=== PATIENT | male | born 1955 | race Caucasian/White ===

== ENCOUNTER → 2019-11-14 | Outpatient (CLI) | payer MEDICARE | LOC: LAB.O 09:51 | PROVIDERS: ATTEND Family Medicine | DX: I10 Essential (primary) hypertension (principal); R53.83 Other fatigue; Z12.5 Encounter for screening for malignant neoplasm of prostate | CPT/HCPCS: 36415; 80053; 81001; 84443; 85025; G0103 ==

== ENCOUNTER → 2019-11-19 | Outpatient (CLI) | payer MEDICARE, MEDICAID ==
--- NOTE | 2019-11-19 16:15 | CT ---
EXAM DESCRIPTION: Abdomen/Pelvis w/wo Contrast CLINICAL HISTORY: 64 years Male, BLOOD IN URINE HEMATURIA COMPARISON: None. TECHNIQUE: CT of the abdomen and pelvis acquired without and with IV contrast material. Coronal and sagittal reformations provided. This exam was performed according to our departmental dose-optimization program, which includes automated exposure control, adjustment of the mA and/or kV according to patient size and/or use of iterative reconstruction technique. FINDINGS: Lung bases: Clear. Solid Organs: Unremarkable liver, spleen, pancreas, adrenal glands. Contracted gallbladder. No biliary ductal dilatation. Bilateral renal cysts measuring up to 12 mm in the right. No hydronephroureter. No renal or ureteral stones. GI tract: Stomach moderately distended with gastric content. No small bowel obstruction. Scattered sigmoid diverticula without pericolonic inflammation or edema. Mild colonic stool. Normal appendix. Vascular: Mild atherosclerosis. Musculoskeletal and soft tissues: No acute fracture or aggressive appearing osseous lesion. Small fat-containing periumbilical hernia. Urinary bladder: Normal. Prostate: Mildly enlarged up to 4.8 cm in maximal transverse dimension. Other: None. IMPRESSION: 1. No renal or ureteral stone or obstructive uropathy. 2. Bilateral renal cysts. 3. Mildly enlarged prostate. 4. Small fat-containing periumbilical hernia. Electronically signed by: Alfredito Mendoza MD 11/19/2019 4:11 PM V BELT INSPECTOR
== END ==
LOC: CT 14:37
PROVIDERS: ATTEND Family Medicine
DX: N40.0 Benign prostatic hyperplasia without lower urinary tract symptoms (principal); K42.9 Umbilical hernia without obstruction or gangrene; N28.1 Cyst of kidney, acquired

== ENCOUNTER → 2019-11-30 | Outpatient (CLI) | payer MEDICARE, MEDICAID ==
--- NOTE | 2019-12-03 11:16 | CT ---
EXAM DESCRIPTION: Chest w/o Contrast : Computed Tomography. CLINICAL HISTORY: 64 years Male TOBACCO USE COMPARISON: CT scan abdomen and pelvis November 2019. TECHNIQUE: Spiral-axial scans at 5 x 5 mm intervals through the lungs and thorax without IV contrast. 2.5 x 5 mm lung algorithm axial reconstructions. Coronal and sagittal 2.0 Mm reconstructions. Total Exam DLP: 877.2 mGy-cm. This exam was performed according to our departmental dose-optimization program which includes automated exposure control, adjustment of the mA and/or kV according to patient size and/or use of iterative reconstruction technique; to reduce radiation dose to as low as reasonably achievable (ALARA). Nodule measurements under 10 mm are given as mean value of 3 axes diameters. FINDINGS: Lungs and large airways: Focal thickening 4 mm in the inferior right major fissure. Bilateral pleural-parenchymal scarring in the inferior lingula and right middle lobe also the upper aspect of the right upper lobe. No abnormal nodules and no masses. No focal infiltrates. Pleural spaces: Bilateral multifocal thickening upper lobes. Minimal bibasilar thickening. No effusion or pneumothorax. Mediastinum and Lavinia: Evaluation limited due to lack of IV contrast no enlarged lymph nodes or dominant soft tissue masses. Great vessels and Heart: Evaluation limited due to lack of IV contrast. Negative. Soft tissues of neck base, axillae, and chest wall: Evaluation limited due to lack of IV contrast. Bilateral small axillary nodes, otherwise unremarkable. Upper abdomen: Gallbladder partially visualized. Normal density and size of the adrenal glands and spleen. Osseous structures: Minimal arthrosis. Minimal thoracic spine spondylosis. No destructive lesions. IMPRESSION: 1. Sporadic bilateral pleural-parenchymal scarring. Bilateral pleural thickening. No abnormal nodules or masses. 2. No dominant soft tissue masses or enlarged lymph nodes in the mediastinum or chest wall. Sensitivity is decreased without IV contrast. 3. No follow-up chest CT scan is recommended. Electronically signed by: Trav Puente MD 12/03/2019 11:15 AM LABOR RELATIONS SPECIALIST
== END ==
LOC: CT 13:00
PROVIDERS: ATTEND Family Medicine
DX: Z72.0 Tobacco use (principal); R91.8 Other nonspecific abnormal finding of lung field

== ENCOUNTER → 2019-12-20 | Outpatient (CLI) | payer MEDICARE, MEDICAID | LOC: YCFC.O 11:02 | PROVIDERS: ATTEND Family Medicine | DX: R53.83 Other fatigue (principal); R73.9 Hyperglycemia, unspecified; F19.21 Other psychoactive substance dependence, in remission; Z86.19 Personal history of other infectious and parasitic diseases ==

== ENCOUNTER → 2020-09-10 | Outpatient (CLI) | payer MEDICARE, MEDICAID | LOC: YCFC.O 12:36 | PROVIDERS: ATTEND Family Medicine | DX: Z03.818 Encounter for observation for suspected exposure to other biological agents ruled out (principal) ==

== ENCOUNTER → 2020-11-03 | Outpatient (CLI) | payer MEDICARE, MEDICAID | LOC: YCFC.O 12:42 | PROVIDERS: ATTEND Nurse Practitioner Family | DX: Z20.828 Contact with and (suspected) exposure to other viral communicable diseases (principal); I10 Essential (primary) hypertension; R73.01 Impaired fasting glucose ==